=== PATIENT | female | born 1995 | race Caucasian/White ===

== ENCOUNTER 2024-01-30 19:23 | Emergency (ER) | payer MEDICARE, MEDICAID, SELFPAY ==
--- NOTE | ~2024-01-30 | CT_ITS ---
EXAMINATION: CT abdomen pelvis w con DATE: 01/31/2024 02:47 INDICATION: Abdominal pain TECHNIQUE: Computed tomography (CT) of the abdomen and pelvis was performed with 100 mL Omnipaque-350 intravenous contrast. Automated exposure control and iterative reconstruction technique were employe d. The dose-length product was 224.20 mGy-cm. COMPARISON: None FINDINGS: Small region of consolidation with surrounding patchy groundglass opacities in the right middle lobe and additional more subtle patchy groundglass opacities in the left lower lobe, both concerning for p neumonia. Heart size is normal. No pericardial effusion. Cardiac pacemaker leads at the right atrial appendage and near the apex of the right ventricle. 8 mm cyst at the dome of the liver. Gallbladder, spleen, pancreas, bilateral adrenal glands and kidneys are normal. Bowels including the appendix are normal. Bladder, anteverted uterus and right ovary are normal. 2.7 cm left ovarian cyst versus follic le. No free intraperitoneal gas or fluid. No pathologically enlarged abdominal or pelvic lymphadenopa thy. Bones are unremarkable. IMPRESSION: 1. Pneumonia in the right middle and left lower lobes. No acute intra-abdominal/pelvic process. Reviewed, dictated and finalized at location A. ER SETTER CHAINSTITCH IMPRESSION: 1. Pneumonia in the right middle and left lower lobes. No acute intra-abdominal /pelvic process.
[2024-01-30 19:26] VITALS: BP 94/65; PULSE 92; RESP 20; TEMP 36.5; O2SAT 99
[2024-01-30 21:21] VITALS: BP 109/52; PULSE 40; RESP 16; TEMP 37.1
[2024-01-30 23:20] VITALS: BP 124/66; PULSE 73; RESP 18; TEMP 36.6; O2SAT 99
[2024-01-31 00:37] VITALS: BP 96/61; PULSE 89; RESP 14; TEMP 36.5; O2SAT 100
--- NOTE | 2024-01-31 00:50 | PC.NURSE ---
Patient states that she has been bleeding off and on for a month. Patient states she has not seen her OB, but has tried. Patient states she was told at [facility] that she needs a hysterectomy. Notified EDP OSEAS Mejía.
--- NOTE | 2024-01-31 01:28 | ED_ITS ---
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 She reports the symptoms have been going on for approximately 1 month. Patient denies having a PCP or an OBGYN. Patient reports in August she had similar symptoms and her hemoglobin was 5.1. She reports her symptoms have continued to get worse. Patient endorses having 4 children, 2 with special needs. She reports walking makes it worse. Patient denies stating I made him get fixed while pointing at her boyfriend, who is also in the room. She endorses abdominal pain that is intermittent but the vaginal bleeding is constant. Patient denies any urinary symptoms, recent fevers, other signs/symptoms of infection. Related Data Allergies Allergy/AdvReac Type Severity Reaction Status Date / Time diphenhydramine (From Allergy Rash Verified 01/30/24 19:34 Benadryl) naproxen Allergy RASH Verified 01/30/24 19:34 nitrofurantoin (From Allergy Rash Verified 01/30/24 19:34 Macrobid) Review of Systems 2 Review of Systems: All systems reviewed & are unremarkable except as noted in HPI and below Exam 2 Narrative: GENERAL: Pale, poorly-nourished, non-toxic, in no acute distress. HEAD: Normocephalic, atraumatic. NECK: Supple. No adenopathy, no masses. RESPIRATORY: Airway patent, respirations nonlabored. Clear to auscultation bilaterally, no rales, rhonchi, wheezing. CARDIOVASCULAR: Regular rate and rhythm without murmurs, rubs, or gallops. Peripheral pulses 2+ and equal bilaterally. ABDOMINAL: Soft, tender in RLQ, RUQ, LLQ, nondistended, no hepatosplenomegaly. Normoactive BS. MUSCULOSKELETAL: Moves all extremities. Strength/ROM intact without gross deformities. SKIN: Warm, dry, normal color. No rashes. NEURO: A&O X3. Speech clear. Cranial nerves II-XII grossly intact. Steady gait. No ataxic movements. PSYCHIATRIC: inappropriate mood as evidence by periodic laughing at inappropriate times, Normal interaction. Course Vital Signs Vital signs: Vital Signs Temperature 36.5 C 01/30/24 19:26 Pulse Rate 92 01/30/24 19:26 Respiratory Rate 20 01/30/24 19:26 Blood Pressure 94/65 L 01/30/24 19:26 Pulse Oximetry 99 01/30/24 19:26 Oxygen Delivery Room Air 01/30/24 19:26 Temperature 36.6 C 01/31/24 02:52 Pulse Rate 90 01/31/24 02:52 Respiratory Rate 16 01/31/24 02:52 Blood Pressure 145/96 H 01/31/24 02:52 Pulse Oximetry 100 01/31/24 02:52 Oxygen Delivery Room Air 01/30/24 19:26 MDM - Female Genitourinary MDM Narrative Medical decision making narrative: Patient is a 28-year-old homeless female who presents to the ER with complaints of vaginal bleeding and abdominal pain. She reports the symptoms have been going on for approximately 1 month. Patient denies having a PCP or an OBGYN. Patient reports in August she had similar symptoms and her hemoglobin was 5.1. She reports her symptoms have continued to get worse. Patient endorses having 4 children, 2 with special needs. She reports walking makes it worse. Patient denies stating I made him get fixed while pointing at her boyfriend, who is also in the room. She endorses abdominal pain that is intermittent but the vaginal bleeding is constant. Patient denies any urinary symptoms, recent fevers, other signs/symptoms of infection. Labs Ordered: CBC, CMP, UA, urine hCG, beta hCG quantitative Imaging Ordered: CT abdomen pelvis scan (d/t pt's elevated liver enzymes) Results: Patient's CBC indicated RBC of 4.1, hemoglobin of 8.2, hematocrit 30.8%. Her CMP indicates a carbon dioxide level of 36, creatinine of 0.6, AST of 46, ALT of 118. patient's urinalysis indicates 2+ protein, 3+ blood, positive nitrates, 1+ leukocytes, RBCs 11-20, and WBCs of 6-10. Patient's urine hCG was negative. Patient abdominal/ pelvis CT scan indicates............... Diagnosis: urinary tract infection Patient Education/Shared MDM: Results shared with patient. Patient will be discharged home with prescription for Keflex to treat her UTI. She was strongly advised to stay hydrated. Patient should follow-up with OBGYN as soon as possible. She may take ibuprofen counter for pain and discomfort. Patient and her significant other verbalized understanding and are in agreement with plan. 0330- Care signed out to Dr. Mcguire. Differential Diagnosis Differential diagnosis: Likely urinary tract infection, dysmenorrhea and other (abnormal vaginal bleeding) Lab Data Attestation: I reviewed the patient's lab results. 01/31/24 01:51 01/31/24 01:51 Labs: Lab Results 01/31/24 Range/Units 01:51 WBC 6.6 (4.5-10.0) K/mm3 RBC 4.10 L (4.2-5.4) M/mm3 Hgb 8.2 L (12.0-15.0) g/dL Hct 30.8 L (37.0-47.0) % MCV 75.1 L (80-100) fl MCH 20.0 L (26-34) pg MCHC 26.6 L (32-36) g/dl RDW 19.6 H (11.5-14.5) % Plt Count 275 (150-375) k/mm3 MPV 10.8 H (7.4-10.4) fl Immature Gran % (Auto) 0.2 (0-0.5) % Neut % (Auto) 62.4 (45.5-73.1) % Lymph % (Auto) 29.5 (18.3-44.2) % [place] % (Auto) 5.0 (2.6-8.5) % Eos % (Auto) 2.4 (0-4.4) % Baso % (Auto) 0.5 (0.2-1.2) % Lymph # (Auto) 1.94 (0.9-3.2) K/mm3 [place] # (Auto) 0.3 (0.1-0.6) K/mm3 Eos # (Auto) 0.2 (0-0.3) K/mm3 Baso # (Auto) 0.0 (0.0-0.1) K/mm3 Abs Immat Gran (auto) 0.01 (0.00-0.031) K/mm3 Absolute Neuts (auto) 4.1 (1.3-6.7) K/mm3 Absolute Nucleated RBC 0.000 (0.0-0.012) K/mm3 Nucleated RBC % 0.0 (0.0-0.2) % Platelet Estimate Adequate (Adequate) Large Platelets Present Polychromasia 1+ Hypochromasia 1+ Anisocytosis 1+ Macrocytosis 1+ (NORMAL) Ovalocytes 1+ Schistocytes None seen Sodium 142 (137-145) mmol/L Potassium 3.7 (3.4-5.0) mmol/L Chloride 101 (98-107) mmol/L Carbon Dioxide 36 H (22-30) mmol/L Anion Gap 5 (4-12) mmol/L BUN 12 (7-17) mg/dL Creatinine 0.60 L (0.7-1.0) mg/dL Estim Creat Clear Calc 87 ml/min Estimated GFR > 60 (59 - ) Glucose 94 (65-110) mg/dL Calcium 9.2 (8.4-10.2) mg/dL Total Bilirubin 1.0 (0.2-1.3) mg/dL AST 46 H (14-36) U/L ALT 118 H (6-35) U/L Alkaline Phosphatase 98 (38-126) U/L Total Protein 8.0 (6.3-8.2) g/dL Albumin 4.3 (3.5-5.1) g/dL Beta HCG, Quant < 2.39 mIU/ML Urine Color Dark yellow (Yellow) Urine Appearance Cloudy H (Clear) Urine pH 6.0 (5.0-9.0) Ur Specific [place] 1.027 (1.001-1.035) Urine Protein 2+ H (Negative) mg/dL Urine Glucose (UA) Negative (Negative) mg/dL Urine Ketones Negative (Negative) mg/dL Ur Blood (Man) 3+ H (Negative) Urine Nitrate Positive H (Negative) Urine Bilirubin Negative (Negative) Urine Urobilinogen 1.0 (<2.0) mg/dL Leukocyte Esterase Rfl 1+ H (Negative) KELSY/UL Urine RBC 11-20 H (0-2) /hpf Urine WBC 6-10 H (0-3) /hpf Ur Squamous Epith Cells Few (Few) /hpf Urine Bacteria 2+ /hpf Urine Test Negative Discharge Plan Discharge Clinical Impression: Urinary tract infection, Abnormal vaginal bleeding Patient Disposition: Home, Self-Care Condition: Stable Instructions: Antibiotic Form, Abnormal (Dysfunctional) Uterine Bleeding (ED), Urinary Tract Infection in Women (ED) Additional Instructions: Please return to the ER with an worsening symptoms. Follow-up with primary care provider in the next 2-3 days. Take all medications as prescribed. Patient Language: Portuguese Prescriptions: New cephalexin 500 mg capsule 500 mg PO Q8H 7 Days Qty: 21 0RF Follow-up/Referrals: UNKNOWN,DOCTOR [Primary Care Provider] -
[2024-01-31] MEDS: SODIUM CHLORIDE 0.9% IV 1,000 ML 999 ML IV CONT (01:51)
[2024-01-31 01:59] LABS: Basophils Percent Auto 0.5 % (0.2-1.2); Eosinophils Absolute Auto 0.2 K/mm3 (0-0.3); Eosinophils Percent Auto 2.4 % (0-4.4); Hematocrit 30.8 % (37.0-47.0); Hemoglobin 8.2 g/dL (12.0-15.0); Immature Granulocyte Absolute 0.01 K/mm3 (0.00-0.031); Immature Granulocyte Percent A 0.2 % (0-0.5); Lymphocytes Absolute Auto 1.94 K/mm3 (0.9-3.2); Lymphocytes Percent Auto 29.5 % (18.3-44.2); Mean Corpuscular HGB Conc 26.6 g/dl (32-36); Mean Corpuscular Volume 75.1 fl (80-100); Mean Platelet Volume 10.8 fl (7.4-10.4); Monocytes Absolute Auto 0.3 K/mm3 (0.1-0.6); Neutrophils Absolute Auto 4.1 K/mm3 (1.3-6.7); Neutrophils Percent Auto 62.4 % (45.5-73.1); Platelet Count Result 275 k/mm3 (150-375); Red Cell Distribution Width 19.6 % (11.5-14.5); White Blood Count 6.6 K/mm3 (4.5-10.0)
[2024-01-31 02:02] LABS: Pregnancy On Board Control Positive; Urine Pregnancy Test Negative
[2024-01-31 02:04] LABS: Add Urine Microscopic? YES; Appearance Urine Cloudy (Clear); Bilirubin Urine Negative (Negative); Blood Urine 3+ (Negative); Color Urine Dark Yellow (Yellow); Glucose Urine UA Negative (Negative); Ketones Urine Negative (Negative); Leukocyte Esterase Ur 1+ LEU/UL (Negative); Nitrate Urine Positive (Negative); Protein Urine 2+ mg/dL (Negative); Specific Grav Ur 1.027 (1.001-1.035)
[2024-01-31 02:06] LABS: Squamous Epithelial Cell Urine Few /hpf (Few)
[2024-01-31 02:07] LABS: Bacteria Urine 2+ /hpf
[2024-01-31 02:13] LABS: Alanine Aminotransferase 118 U/L (6-35); Albumin Level 4.3 g/dL (3.5-5.1); Alkaline Phosphatase 98 U/L (38-126); Anion Gap 5 mmol/L (4-12); Aspartate Amino Transferase 46 U/L (14-36); Blood Urea Nitrogen 12 mg/dL (7-17); Calcium 9.2 mg/dL (8.4-10.2); Carbon Dioxide 36 mmol/L (22-30); Chloride 101 mmol/L (98-107); Estimated CRCL calculation 87 ml/min; Estimated Glomerular Filt Rate > 60; Glucose 94 mg/dL (65-110); Potassium 3.7 mmol/L (3.4-5.0); Sodium 142 mmol/L (137-145)
[2024-01-31 02:18] LABS: Anisocytosis 1+; Large Platelets Present; Macrocytosis 1+ (NORMAL); Ovalocytes 1+; Platelet Estimate Adequate (Adequate); Schistocytes None Seen
[2024-01-31 02:19] LABS: Hypochromasia 1+; Polychromasia 1+
[2024-01-31 02:26] LABS: Beta HCG Quantitative < 2.39 mIU/ML
[2024-01-31 02:41] VITALS: BP 120/60; PULSE 88; RESP 16; TEMP 36.5; O2SAT 99
[2024-01-31 02:52] VITALS: BP 145/96; PULSE 90; RESP 16; TEMP 36.6; O2SAT 100
[2024-01-31 03:01] VITALS: BP 108/77; PULSE 67; RESP 14; TEMP 36.5; O2SAT 100
[2024-01-31] MEDS: CEPHALEXIN 500 MG CAPSULE PO (03:08)
[2024-01-31 04:28] VITALS: BP 111/65; PULSE 67; RESP 18; TEMP 36.3; O2SAT 99
[2024-01-31 06:13] VITALS: BP 95/53; PULSE 67; RESP 100; TEMP 36.6; O2SAT 100
== END 2024-01-31 06:54 | disposition home or self-care (01) ==
PROVIDERS: Emergency Provider Registered Nurse
DX: N39.0 Urinary tract infection, site not specified (principal); J18.9 Pneumonia, unspecified organism; N93.9 Abnormal uterine and vaginal bleeding, unspecified; Z59.00 Homelessness unspecified
CPT/HCPCS: 36415; 74177; 80053; 81001; 81025; 84702; 85025; 87086; 87186; 96360; 99284; A9270; J7030; Q9967

== ENCOUNTER 2024-11-22 09:17 | Emergency (ER) | payer MEDICAID, SELFPAY ==
--- OUTSIDE RECORDS SUMMARY | 2024-11-02 05:52 | XMS_ITS | Continuity of Care Document ---
Author Organization [facility] Address [address] [place] [phone] Phone Care Team Providers Care Director Of Annual Giving Name Role Phone Kiara GREENE, FACC, Ludy [...] Diagnoses Date Provider Providers Copied on Encounter [facility], [facility] [place], [place], [id number] , tel: [phone] [facility] No Information Kiara Boston. [address] [place] [address], [id number] , . tel: [phone] [facility], [facility] [place], [place], [id number] , tel: [phone] [facility] No Information 5 Hardik Stubbs. [address] [place], [place], [id number] , . tel: [phone] Referring Provider: Evelyne Dye, [address] , [place], [address] . tel:[phone] [facility], [address] [place] [address], [id number] , tel: [phone] [facility] No Information 5 Kiara Boston. [address] [place], [place], [id number] , . tel: [phone] Referring Provider: Ludy Stark, [address] [place], [address] . tel:[phone] [facility], [address] [place] [address], [id number] , tel: [phone] [facility] No Information 5 Kiara Boston. [address] [place], [place], [id number] , . tel: [phone] Referring Provider: Ludy Stark, [address] [place], [address] . tel:[phone] [facility], [address] [place] [address], [id number] , tel: [phone] [facility] No Information 5 Hardik Stubbs. [address] [place], [place], [id number] , . tel: [phone] Referring Provider: Evelyne Dye, [address] [place], [address] . tel:[phone] [facility], [address] [place] [address], [id number] , tel: [phone] [facility] Unspecified atrial fibrillationPresence of cardiac pacemakerBradycardia, unspecifiedOther chest painDizziness and giddinessOther forms of dyspneaNonrheumatic mitral (valve) insufficiency 5 Kiara Boston. [address], [place], [place], [id number] , [place]. tel: [phone] Family History Family Member Type Diagnosis Age At Onset Problem (finding) Family history of Myotonic muscular dystrophy Problem (finding) Family history of Congestive heart failure Payers Payer name Insurance type Covered libertarian ID Authoriza tion(s) [employer] [place] [id number] [employer] [place] [id number] Social History Type Description Quantity Date Captured Comments Sex Female Smoking Status No Information Chief Complaint And Reason For Visit No Information Reason For Referral Reason For Referral No Information History Of Present Illness Encounter Date Complaint History Of Prese nt Illness No Information Functional Status Date Functional Assessmen t No Information Instructions Date Instruction Additional Infor mation No Information Assessments Type Assessment Date No Information Patient Care Teams Name Effective Dates (start - stop) Status Members No Information
[2024-11-22] VITALS (8 sets, daily range): BP systolic 92–101; BP diastolic 60–70; PULSE 60–92; RESP 13–18; TEMP 36.8; O2SAT 97–100
--- NOTE | ~2024-11-22 | XR_ITS ---
Examination: XR chest 2V Clinical History: cp Comparison: None Technique: PA and Lateral Findings: Cardiomediastinal silhouette normal size and configuration. Lungs clear. No acute bony abnormality. IMPRESSION: 1. No acute cardiopulmonary findings. Reviewed, dictated and finalized at location R.
--- NOTE | 2024-11-22 09:34 | ECG_ITS ---
Test Date: 2024-11-22 09:38:25 Measurements Intervals Sil[place] Rate: 69 P: 30 NV: 160 QRS: 64 QRSD: 72 T: 59 QT: 409 QTc: 440 Interpretive Statements ELECTRONIC ATRIAL PACEMAKER MINIMAL Q WAVES- ANTEROLAT/INF LEADS BASELINE WANDER- V1-V2 BORDERLINE ECG No previous ECG available for comparison Electronically Signed On 11-22-2024 10:32:55 CDT by Ricardo Terry D.O.
[2024-11-22 09:55] LABS: Hematocrit 36.6 % (37.0-47.0); Hemoglobin 11.4 g/dL (12.0-15.0); Immature Granulocyte Percent A 0.2 % (0-0.5); Lymphocytes Absolute Auto 1.37 K/mm3 (0.9-3.2); Mean Corpuscular HGB Conc 31.1 g/dl (32-36); Mean Corpuscular Hemoglobin 28.2 pg (26-34); Mean Corpuscular Volume 90.6 fl (80-100); Nucleated Red Blood Cells Absolute Auto 0.000 K/mm3 (0.0-0.012); Nucleated Red Blood Cells Perc 0.0 % (0.0-0.2); Platelet Count Result 204 k/mm3 (150-375); Red Blood Count 4.04 M/mm3 (4.2-5.4); White Blood Count 4.7 K/mm3 (4.5-10.0)
--- NOTE | 2024-11-22 09:57 | ED.CHESTPAIN ---
HPI - Chest Pain General Chief Complaint: Chest Pain Stated Complaint: nausea vomiting, cp Time Seen by Provider: 11/22/24 09:53 History of Present Illness HPI narrative: Patient had some nausea and vomiting yesterday, woke up this morning with chest pain, has not had symptoms like this before. 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 EYES: EOMI, conjunctiva normal ENT: Hearing grossly intact LUNGS: Nonlabored breathing. Clear to auscultation bilaterally HEART: [Regular rate and rhythm] ABD: [Soft], [nontender to palpation] EXT: Normal range of motion SKIN: [No rashes or lesions.] NEURO: [Alert and oriented x 3. Some generalized weakness.] PSYCH: Normal affect Course Vital Signs Vital signs: Vital Signs Temperature 98.2 F 11/22/24 09:31 Pulse Rate 92 11/22/24 09:31 Respiratory Rate 16 11/22/24 09:31 Blood Pressure 101/69 11/22/24 09:31 Pulse Oximetry 99 11/22/24 09:31 Oxygen Delivery Room Air 11/22/24 09:31 Temperature 98.2 F 11/22/24 09:31 Pulse Rate 65 11/22/24 13:22 Respiratory Rate 18 11/22/24 13:22 Blood Pressure 98/62 L 11/22/24 13:22 Pulse Oximetry 97 11/22/24 13:22 Oxygen Delivery Room Air 11/22/24 09:31 MDM - Chest Pain MDM Narrative Medical decision making narrative: Patient had some nausea and vomiting yesterday, woke up this morning with chest pain, has not had symptoms like this before. 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 No prior EKG for comparison. Given this I did order tiny dose of Toradol, and cardiac labs obtained. These are all within acceptable limits including negative troponin, though she does have some minimally elevated LFTs, per EMR they have been elevated in the past also. Chest x-ray without any acute abnormality, I did perform bedside echo that does not show any pericardial effusion or tamponade. On re-evaluation, patient's pain has completely resolved, she is hungry and asking for food. 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 Lab Data 11/22/24 09:47 11/22/24 09:47 Labs: Lab Results 11/22/24 11/22/24 Range/Units 09:47 12:14 WBC 4.7 (4.5-10.0) K/mm3 RBC 4.04 L (4.2-5.4) M/mm3 Hgb 11.4 L D (12.0-15.0) g/dL Hct 36.6 L (37.0-47.0) % MCV 90.6 (80-100) fl MCH 28.2 (26-34) pg MCHC 31.1 L (32-36) g/dl RDW 14.9 H (11.5-14.5) % Plt Count 204 (150-375) k/mm3 MPV 9.7 (7.4-10.4) fl Immature Gran % (Auto) 0.2 (0-0.5) % Neut % (Auto) 61.6 (45.5-73.1) % Lymph % (Auto) 29.1 (18.3-44.2) % Green % (Auto) 4.7 (2.6-8.5) % Eos % (Auto) 4.0 (0-4.4) % Baso % (Auto) 0.4 (0.2-1.2) % Lymph # (Auto) 1.37 (0.9-3.2) K/mm3 Green # (Auto) 0.2 (0.1-0.6) K/mm3 Eos # (Auto) 0.2 (0-0.3) K/mm3 Baso # (Auto) 0.0 (0.0-0.1) K/mm3 Abs Immat Gran (auto) 0.01 (0.00-0.031) K/mm3 Absolute Neuts (auto) 2.9 (1.3-6.7) K/mm3 Absolute Nucleated RBC 0.000 (0.0-0.012) K/mm3 Nucleated RBC % 0.0 (0.0-0.2) % PT 11.9 (11.1-14.7) Seconds INR 0.9 APTT 25.9 (22.3-36.8) Seconds Sodium 139 (137-145) mmol/L Potassium 4.2 (3.4-5.0) mmol/L Chloride 107 (98-107) mmol/L Carbon Dioxide 26 (22-30) mmol/L Anion Gap 6 (4-12) mmol/L BUN 12 (7-17) mg/dL Creatinine 0.46 L (0.7-1.0) mg/dL Estim Creat Clear Calc 112 ml/min Estimated GFR > 60 (59 - ) Glucose 89 (65-110) mg/dL Calcium 9.0 (8.4-10.2) mg/dL Total Bilirubin 0.6 (0.2-1.3) mg/dL AST 74 H (14-36) U/L ALT 79 H (6-35) U/L Alkaline Phosphatase 86 (38-126) U/L Troponin I < 0.012 < 0.012 (0.000-0.034) ng/mL Total Protein 6.6 (6.3-8.2) g/dL Albumin 3.6 (3.5-5.1) g/dL Lipase 87 (23-300) U/L Discharge Plan Discharge Clinical Impression: Chest pain Patient Disposition: Home Condition: Stable Instructions: Chest Pain (ED), Acute Pericarditis (ED) Additional Instructions: Please follow-up with your tangled yarn worker in the next few days. You can take Tylenol for pain as needed. Try the medications as prescribed. You can always return to the emergency room if her pain returns or worsens. Patient Language: Zambian Prescriptions: New acetaminophen [Tylenol Extra Strength] 500 mg tablet 1,000 mg PO Q6H PRN (Reason: pain) Qty: 50 0RF alum-mag hydroxide-simeth [Maalox Advanced] 200-200-20 mg/5 mL suspension 10 ml PO QID PRN (Reason: dyspepsia) Qty: 100 0RF Rx Instructions: administer between meals and at bedtime ondansetron 4 mg tablet,disintegrating 4 mg PO Q8H PRN (Reason: nausea and vomiting) Qty: 10 0RF No Action cephalexin 500 mg capsule 500 mg PO Q8H 7 Days Qty: 21 0RF amoxicillin-pot clavulanate 875-125 mg tablet 1 tablet PO Q12H 7 Days Qty: 14 0RF Follow-up/Referrals: UNKNOWN,DOCTOR [Non-Staff]
[2024-11-22 10:07] LABS: Alanine Aminotransferase 79 U/L (6-35); Albumin Level 3.6 g/dL (3.5-5.1); Alkaline Phosphatase 86 U/L (38-126); Anion Gap 6 mmol/L (4-12); Aspartate Amino Transferase 74 U/L (14-36); Bilirubin,Total 0.6 mg/dL (0.2-1.3); Blood Urea Nitrogen 12 mg/dL (7-17); Calcium 9.0 mg/dL (8.4-10.2); Carbon Dioxide 26 mmol/L (22-30); Chloride 107 mmol/L (98-107); Estimated CRCL calculation 112 ml/min; Estimated Glomerular Filt Rate > 60; Glucose 89 mg/dL (65-110); Lipase 87 U/L (23-300); Potassium 4.2 mmol/L (3.4-5.0); Sodium 139 mmol/L (137-145); Total Protein 6.6 g/dL (6.3-8.2)
[2024-11-22 10:14] LABS: INR 0.9; Prothrombin Time 11.9 Seconds (11.1-14.7)
[2024-11-22 10:15] LABS: Partial Thromboplastin Time 25.9 Seconds (22.3-36.8)
[2024-11-22 10:18] LABS: Troponin I < 0.012 ng/mL (0.000-0.034)
--- OUTSIDE RECORDS SUMMARY | 2024-11-22 10:26 | XMS_ITS | Encounter Summary ---
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 No / Unsure 05/31/2020 12:48 PM CDT documented as of this encounter Functional Status * Is person deaf or have serious hearing difficulty? Answer Date of Assessment Author No 06/01/2020 9:27 AM CDT Jesus Guillen RN * Is person blind or have serious difficulty seeing? Answer Date of Assessment Author No 06/01/2020 9:27 AM CDT Jesus Guillen RN * Does person have serious difficulty walking/climbing stairs? Answer Date of Assessment Author No 06/01/2020 9:27 AM CDT Jesus Guillen RN * Does person have difficulty dressing/bathing? Answer Date of Assessment Author No 06/01/2020 9:27 AM CDT Jesus Guillen RN * Does person have difficulty doing errands alone? Answer Date of Assessment Author No 06/01/2020 9:27 AM CDT Jesus Guillen RN documented as of this encounter Mental Status * Does person have difficulty concentrating/remembering/making decisions? Answer Entry Date Author No 06/01/2020 9:27 AM CDT Jesus Guillen RN documented in this encounter Miscellaneous Notes * Telephone Encounter - Aliya Edwards CPhT - 06/01/2020 4:24 PM CDT This patient would like to have any discharge medications filled and delivered to their room prior to discharge. Please send prescriptions to [facility] - E-scribe or Fax ([phone]) This patient has been added to the Bedside Delivery Patients list. Please access this list for communications regarding the status of the prescriptions. Please call [phone] with any questions. documented in this encounter Plan of Treatment Not on file documented as of this encounter Visit Diagnoses Not on filedocumented in this encounter Care Teams Pourer Bull Ladle Relationship Specialty [place] [address] [place] [phone] PCP - General 03/14/18 01/07/24 Gianni Ogden PA [address] [place] [phone] PCP - General Physician Social Media Marketing Manager 03/25/24 Bushra Prado DO [address] [place] [id number] Engineer System Administrator Cardiovascular Disease 02/02/20 documented as of this encounter
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
--- OUTSIDE RECORDS SUMMARY | 2024-11-22 10:26 | XMS_ITS | Encounter Summary ---
Author Organization [facility] Address [address] [facility] [place] [address] Care Team Providers Care Biscuitware Brusher Name Role Phone Gianni Ogden Primary Care Provider + Bushra Prado DO Unavailable [phone] Gianni Ogden Primary Care Provider + Reason for Visit * Reason Comments Refill Request Encounter Details Date Type Department Care Team (Late st Contact Info) Description 08/31/[address] [facility] [place] [address] [place] [id number] Kadie Hunt MD [address] [address] Refill Request Social History Tobacco Use Types Packs/Day Years Used Date Smoking Tobacco: Former Cigarettes Q uit: 06/12/2013 Smokeless Tobacco: Never Alcohol Use Standard Drinks/Week Comments No 0 (1 standard drink = 0.6 oz pur e alcohol) Comments Yes Sex and Gender Information Value Date Recorded Sex Assigned at Not on file Legal Sex Female 6:36 PM CDT Gender Identity Not on file Sexual Orientation Not on file documented as of this encounter Functional Status * Is person deaf or have serious hearing difficulty? Answer Date of Assessment Author No 11/14/2015 12:27 PM CDT Lauren Arce RN * Is person blind or have serious difficulty seeing? Answer Date of Assessment Author No 11/14/2015 12:27 PM CDLauren Mckeon RN * Does person have serious difficulty walking/climbing stairs? Answer Date of Assessment Author No 11/14/2015 12:27 PM Lauren Cunningham RN * Does person have difficulty dressing/bathing? Answer Date of Assessment Author No 11/14/2015 12:27 PM Lauren Cunningham RN * Does person have difficulty doing errands alone? Answer Date of Assessment Author No 11/14/2015 12:27 PM Lauren Cunningham RN documented as of this encounter Mental Status * Does person have difficulty concentrating/remembering/making decisions? Answer Entry Date Author No 11/14/2015 12:27 PM Lauren Cunningham RN documented in this encounter Plan of Treatment Not on file documented as of this encounter Visit Diagnoses Not on filedocumented in this encounter Care Teams Biscuitware Brusher Relationship Specialty Start [place] [address] [place] [phone] PCP - General 03/14/18 01/07/24 Gianni Ogden PA [address] [place] [phone] PCP - General Physician Faculty Research Physician 03/25/24 Bushra Prado DO [address] [place] [address] [address] [place] [address] Ring Cutter Lathe Operator Cardiovascular Disease 02/02/20 documented as of this encounter
--- OUTSIDE RECORDS SUMMARY | 2024-11-22 10:26 | XMS_ITS | Encounter Summary ---
Author Organization [facility] Health Address [address] [facility] [place] [address] Care Team Providers Care Finishing Room Supervisor Name Role Phone Gianni Ogden Primary Care Provider + Bushra Prado DO Unavailable Gianni Ogden Primary Care Provider + Reason for Visit * Reason Onset Date Comments Care 06/07/2020 Encounter Details Date Type Department Care Team (Late st Contact Info) Description 06/07/[address] [facility] PATIENT CALL BACK [address] [place] [address] Noemi Ch RN Postpartum Care Social History Tobacco Use Types Packs/Day Years [...] of Assessment Author No 06/01/2020 9:27 AM Jesus Garcia RN * Does person have serious difficulty walking/climbing stairs? Answer Date of Assessment Author No 06/01/2020 9:27 AM Jesus Garcia RN * Does person have difficulty dressing/bathing? Answer Date of Assessment Author No 06/01/2020 9:27 AM Jesus Garcia RN * Does person have difficulty doing errands alone? Answer Date of Assessment Author No 06/01/2020 9:27 AM Jesus Garcia RN documented as of this encounter Mental Status * Does person have difficulty concentrating/remembering/making decisions? Answer Entry Date Author No 06/01/2020 9:27 AM Jesus Garcia RN documented in this encounter Plan of Treatment Not on file documented as of this encounter Visit Diagnoses Not on filedocumented in this encounter Care Teams Finishing Room Supervisor Relationship Specialty [place] [address] [place] [phone] PCP - General 03/14/18 01/07/24 Gianni Ogden PA [address] [place] [phone] PCP - General Physician Claims Examiner 03/25/24 Bushra Prado DO [address] [place] [address] [address] [place] [address] Shoe Maker Cardiovascular Disease 02/02/20 documented as of this encounter
[2024-11-22] MEDS: KETOROLAC 15 MG/ML VIAL (*BKC) IV PUSH (10:54)
[2024-11-22] MEDS: ONDANSETRON INJ 4 MG/2 ML VIAL IV PUSH (10:54)
--- NOTE | 2024-11-22 12:06 | ECG_ITS ---
Test Date: 2024-11-22 12:13:23 Measurements Intervals [place] Rate: 60 P: 14 HI: 188 QRS: 60 QRSD: 81 T: 54 QT: 464 QTc: 464 Interpretive Statements ELECTRONIC ATRIAL PACEMAKER MINIMAL Q WAVES- ANTEROLAT/INF LEADS BASELINE WANDER- I, III, AVF, V1-V6 BORDERLINE ECG Compared to ECG 11/22/2024 09:38:25 No significant changes Electronically Signed On 11-22-2024 13:57:13 CDT by Ricardo Terry D.O.
[2024-11-22] MEDS: PANTOPRAZOLE SODIUM IV 40 MG VIAL IV PUSH (12:13)
[2024-11-22 12:45] LABS: Troponin I < 0.012 ng/mL (0.000-0.034)
== END 2024-11-22 13:24 | disposition home or self-care (01) ==
PROVIDERS: Emergency Provider Emergency Medicine
DX: R07.9 Chest pain, unspecified (principal)
CPT/HCPCS: 36415; 71046; 80053; 83690; 84484; 85025; 85610; 85730; 93005; 96374; 96375; 99284; A9270; J1885; J2405; J2470

== ENCOUNTER 2024-11-24 20:47 | Emergency (ER) | payer MEDICAID, SELFPAY ==
--- OUTSIDE RECORDS SUMMARY | 2024-11-02 05:52 | XMS_ITS | Continuity of Care Document ---
Author Organization [facility] Address [address] [place] [id number] Phone Care Team Providers Care Corporate General Manager Name Role Phone Kiara GREENE, FACC, Ludy Unavailable Unavail able Allergies, Adverse Reactions, Alerts Substance Reaction Status Criticality TAPE, OCCLUSIVE ADHESIVE Unknown(moderate) Active No Information NITROFURANTOIN MACROCRYSTALLINE Unknown(moderate) Acti ve No Information nitrofurantoin Unknown(moderate) Active No Infor mation metformin Unknown(moderate) Active No Informa tion Medications Medication Instructions Dosage Effective Dates (start - stop) Status Comments ondansetron 4 mg disintegrating tablet DISSOLVE 1 TABLET ON THE TONGUE EVERY 8 HOURS NEEDED FOR NAUSEA OR VOMITING - Active metronidazole 500 mg tablet TAKE 1 TABLET BY MOUTH TWICE DAILY - Active Procedures Procedure Date ELECTROCARDIOGRAM REPORT ELECTROCARDIOGRAM REPORT ELECTROCARDIOGRAM REPORT ELECTROCARDIOGRAM REPORT Advance Directives Directive Yes / No Effective Date File Name No Information Encounters Encounter Description Practice Location Reason(s) For Visit Diagnoses Date Provider Providers Copied on Encounter [facility], [facility] [place], [place], [id number] , tel: [phone] [facility] No Information Kiara Boston. [address] [place] [address], [id number] , . tel: [phone] [facility], [facility] [place], [place], [id number] , tel: [phone] [facility] No Information 5 Hardik Stubbs. [address] [place], [place], [id number] , . tel: [phone] Referring Provider: Evelyne Dye, [address] , [place], [address] . tel:[phone] [facility], [address] [place] [address], [id number] , tel: [phone] [facility] No Information 5 Kiara Boston. [address] [place], [place], [id number] , . tel: [phone] Referring Provider: Ludy Stark, [address] [place], [address] . tel:[phone] [facility], [address] [place] [address], [id number] , tel: [phone] [facility] No Information 5 Kiara Boston. [address] [place], [place], [id number] , . tel: [phone] Referring Provider: Ludy Stark, [address] [place], [address] . tel:[phone] [facility], [address] [place] [address], [id number] , tel: [phone] [facility] No Information 5 Hardik Stubbs. [address] [place], [place], [id number] , . tel: [phone] Referring Provider: Evelyne Dye, [address] [place], [address] . tel:[phone] [facility], [address] [place] [address], [id number] , tel: [phone] [facility] Unspecified atrial fibrillationPresence of cardiac pacemakerBradycardia, unspecifiedOther chest painDizziness and giddinessOther forms of dyspneaNonrheumatic mitral (valve) insufficiency Kiara Boston. [address] [place], [place], [place], [id number] , [place]. tel: [phone] Family History Family Member Type Diagnosis Age At Onset Problem (finding) Family history of Myotonic muscular dystrophy Problem (finding) Family history of Congestive heart failure Payers Payer name Insurance type Covered democrat ID Authoriza titika(s) [place] [employer] [place] [id number] [employer] [place] [id number] Social History Type Description Quantity Date Captured Comments Sex Female Smoking Status No Information Chief Complaint And Reason For Visit No Information Reason For Referral Reason For Referral No Information Plan Of Treatment Date Type Action Status Appointment Sophie Saldana BOOKED History Of Present Illness Encounter Date Complaint History Of Prese nt Illness No Information Functional Status Date Functional Assessmen t No Information Instructions Date Instruction Additional Infor mation No Information Assessments Type Assessment Date No Information Patient Care Teams Name Effective Dates (start - stop) Status Members No Information
--- NOTE | ~2024-11-24 | XR_ITS ---
Examination: XR chest 1V portable Clinical History: dizziness Comparison: 11/22/2024 Technique: Portable AP Findings: Left pacemaker. Heart size normal. Lungs clear. No acute bony abnormality. IMPRESSION: 1. No acute cardiopulmonary findings given portable technique. Reviewed, dictated and finalized at location R.
--- NOTE | 2024-11-24 20:52 | ECG_ITS ---
Test Date: 2024-11-24 21:00:11 Measurements Intervals [place] Rate: 79 P: 37 VT: 173 QRS: 42 QRSD: 86 T: 34 QT: 381 QTc: 438 Interpretive Statements ELECTRONIC ATRIAL PACEMAKER BASELINE ARTIFACT- I, II, III, AVR, AVF, V1-V6 ATYPICAL ECG Compared to ECG 11/22/2024 12:13:23 No significant changes Electronically Signed On 11-25-2024 06:11:58 CDT by Ricardo Terry D.O.
[2024-11-24 20:54] VITALS: BP 112/71; PULSE 75; RESP 20; TEMP 36.4; O2SAT 99
--- OUTSIDE RECORDS SUMMARY | 2024-11-24 22:23 | XMS_ITS | Encounter Summary ---
Author Organization [facility] Health Address [address] [place] [address] Care Team Providers Care Technical Agronomist Name Role Phone Gianni Ogden Primary Care Provider + Bushra Prado DO Unavailable [phone] Gianni Ogden Primary Care Provider + Reason for Visit * Reason Onset Date Comments Care 06/07/2020 Encounter Details Date Type Department Care Team (Late st Contact Info) Description 06/07/[address] [facility] PATIENT CALL BACK [address] [place] [address] Noemi Ch RN Postpartum Care [...] on filedocumented in this encounter Care Teams Technical Agronomist Relationship Specialty [place] [address] [place] [phone] PCP - General 03/14/18 01/07/24 Gianni Ogden PA [address] [place] [phone] PCP - General Physician Dough Cutting Machine Operator 03/25/24 Bushra Prado DO [address] [place] [address] [address] [place] [address] Manufacturing Business Analyst Cardiovascular Disease 02/02/20 documented as of this encounter
--- OUTSIDE RECORDS SUMMARY | 2024-11-24 22:23 | XMS_ITS | Clinical Summary ---
Author Organization [facility] Address [address] [facility] [place] [address] Care Team Providers Care Studio Receptionist Name Role Phone EveBushra Judy DO Unavailable Gianni Ogden Primary Care Provider + Source Comments [facility],non-owned Affiliates and Associated Physician Practices is amultiple site organization consisting of ambulatory clinics and hospital sitesin [place], [place], [place]. This disclosure is being madepursuant to the Care Everywhere program and may not contain all information available regarding this patient. Last updated 17.[facility] Allergies Active Allergy Reactions Criticality Noted Date [...] migh t be different from the original. [facility]2018 [employer] form completed. Diapers given. 03/29/2020; [...] score: Treatment with Dr Mane Herr at [facility] Previously on Buproprion HCL 75mg; pt discontinued [...] from the original note were not included. SNF PATIENT--PLEASE CALL [phone] IF TRIAGED OR ADMITTED Care Provider: Ijeoma sandrita [place] [facility] [place] consultants involved: Kei; Diagnosis: Unilateral left ventriculomegaly resolved, moderate to severe polyhydramnios care needed at : Planned care after delivery: Wharf Operator: Planned surveillance: Initial SNF appointment 09.04 Planned delivery location: [facility] or [facility] (patient undecided) Planned GA at delivery: Planned mode of delivery: Placenta Instructions: Autopsy indicated: Genetics note: Forensic Accountant Concerns: 09/05/15- Patient with PPD after her [...] medical care, and heating? Very hard 03/30/2024 [facility] [place] of Occupat ional Health - Occupational Stress [...] place to sleep or slept in a fpc (including now)? Yes 07/12/2023 Housing Stability Vital Sign Answer James e Recorded In the last 12 months, was t here a time when you were not able to pay the mortgage or rent on time? Yes 03/30/2024 In the past 12 months, how m any times have you moved where you were living? 4 03/30/2024 At any time in the past [facility], were you homeless or living in a fpc (including now)? Yes 03/30/2024 Comments No Sex and Gender Information Value Date Recorded Sex Assigned at Not on file Legal Sex Female 6:36 PM CDT Gender Identity Not on file Sexual Orientation Not on file Last Filed Vital Signs Vital Sign Reading Time Taken Comments Blood Pressure 102/65 03/30/2024 12:35 PM LUG LOADER Pulse 89 03/30/2024 12:35 PM LUG LOADER Temperature 37 C (98.6 F) 03/30/2024 12:35 PM LUG LOADER Respiratory Rate 18 03/30/2024 12:35 PM LUG LOADER Oxygen Saturation 100% 03/30/2024 12:35 PM LUG LOADER Inhaled Oxygen Concentration - - Weight 46.8 kg (103 lb 3.2 oz) 03/26/2024 12:38 AM LUG LOADER Height 154.9 cm (5' 1) 03/26/2024 12:38 AM LUG LOADER Body Mass Index 19.5 03/26/2024 12:38 AM LUG LOADER Plan of Treatment Health Maintenance Due Date [...] AG PANEL AM Draw 03/30/2024 3:55 AM LUG LOADER PAP LB RFLX HPV ASCU Routine 09/08/2019 3:55 PM CDT Anemia, unspecified type from Last 3 Months or Most Recently Relevant to Health Maintenance Results * HIV-1 HIV-2 ANTIBODY + HIV P24 AG PANEL (03/30/2024 3:55 AM LUG LOADER) HIV1/2 Ab + P24 Ag Non Reactive Non Reactive 03/30/2024 11:42 AM LUG LOADER [facility] Blood BLOOD SPECIMEN / Unknown Lab Venipuncture / Unknown 03/30/2024 3:55 AM LUG LOADER 03/30/2024 4:09 AM LUG LOADER Narrative [facility] - 03/30/2024 11:42 AM LUG LOADER No Laboratory evidence of HIV infection. Junito Koenig MD LAB - CHEMISTRY ORDERABLES Final Result [facility] [address] [place] [address] * PAP LB RFLX HPV ASCU (09/08/2019 3:55 PM CDT) Diagnosis Comment 09/15/2019 2:09 PM CDT [facility] ([facility]) Comment: NEGATIVE FOR INTRAEPITHELIAL LESION OR MALIGNANCY. SPECIMEN REPROCESSED FOR INTERPRETATION USING GLACIAL ACETIC ACID (GAA). Specimen Adequacy Comment 020 2:09 PM CDT [facility] ([facility]) Comment: Satisfactory for evaluation. Endocervical and/or squamous metaplastic cells (endocervical component) are present. Areas of partially obscuring blood are present. Performed by Comment 09/15/2019 2:09 PM CDT [facility] ([facility]) Comment:Rolf Fair totechnologist (ASCP) Comment . 09/15/2019 2:09 PM CDT [facility] ([facility]) Note Comment 09/15/2019 2:09 PM CDT [facility] ([facility]) Comment: The Pap smear is a screening test designed to aid in the detection of premalignant and malignant conditions of the uterine cervix. It is not a diagnostic procedure and should not be used as the sole means of detecting cervical cancer. Both false-positive and false-negative reports do occur. Note Comment 09/15/2019 2:09 PM CDT [facility] ([facility]) Comment: The HPV DNA reflex criteria were not met with this specimen result therefore, no HPV testing was performed. Pathology/Cytolo gy PART OF UTERINE CERVIX / Unknown Collection / Unknown 09/08/2019 3:55 PM CDT 09/08/2019 4:06 PM CDT [facility] ([facility]) - 09/15/2019 2:09 PM CDT Performed at: [address] [id number] Graphic Art Sales Representative: Adore Gayle MD, Phone: [phone] Specimen Comment: Source.............Cervix Specimen Comment: No. of containers..01 ThinPrep Vial us Aliya Garcia MD LAB - PATHOLOGY/CYTOLOGY LAYLA VARNER Final Result [facility] ([facility]) [address] [place] [address] from Last 3 Months or Most Recently [...] 10:06 AM 03/16/2020 1:17 PM Care Teams Studio Receptionist Relationship Specialty Start Date End Date Gianni Ogden PA [address] [place], [place] [phone] PCP - General Physician Veterinary Physiologist 03/25/24 Bushra Prado DO [address] [place] [id number] Evaporator Repairer Cardiovascular Disease 02/02/20
--- OUTSIDE RECORDS SUMMARY | 2024-11-24 22:23 | XMS_ITS | Encounter Summary ---
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 Please send prescriptions to [facility] or Fax ([phone]) This patient has been added to the Bedside Delivery Patients list. Please access this list for communications regarding the status of the prescriptions. Please call [phone] with any questions. documented in this encounter Plan of Treatment Not on file documented as of this encounter Visit Diagnoses Not on filedocumented in this encounter Care Teams Risk Adjustment Specialist Relationship Specialty [place] [address] [place] [phone] PCP - General 03/14/18 01/07/24 Gianni Ogden PA [address] [place] [phone] PCP - General Physician Rf Microwave Engineer 03/25/24 Bushra Prado DO [address] [place] [id number] Portfolio Strategist Cardiovascular Disease 02/02/20 documented as of this encounter
[2024-11-24 22:26] VITALS: BP 97/67; PULSE 77; RESP 17; O2SAT 100
[2024-11-24 22:31] LABS: Hematocrit 35.3 % (37.0-47.0); Hemoglobin 11.1 g/dL (12.0-15.0); Immature Granulocyte Percent A 0.2 % (0-0.5); Lymphocytes Absolute Auto 1.89 K/mm3 (0.9-3.2); Mean Corpuscular HGB Conc 31.4 g/dl (32-36); Mean Corpuscular Hemoglobin 28.6 pg (26-34); Mean Corpuscular Volume 91.0 fl (80-100); Nucleated Red Blood Cells Absolute Auto 0.000 K/mm3 (0.0-0.012); Nucleated Red Blood Cells Perc 0.0 % (0.0-0.2); Platelet Count Result 205 k/mm3 (150-375); Red Blood Count 3.88 M/mm3 (4.2-5.4); White Blood Count 4.9 K/mm3 (4.5-10.0)
[2024-11-24 22:36] LABS: Add Urine Microscopic? YES; Appearance Urine Cloudy (Clear); Glucose Urine UA Negative (Negative); Leukocyte Esterase Ur Trace LEU/UL (Negative); Nitrate Urine Negative (Negative); Non Pathogenic Casts 0-2; Specific Grav Ur 1.025 (1.001-1.035)
[2024-11-24 22:41] LABS: Alanine Aminotransferase 62 U/L (6-35); Albumin Level 3.8 g/dL (3.5-5.1); Alkaline Phosphatase 86 U/L (38-126); Anion Gap 8 mmol/L (4-12); Aspartate Amino Transferase 53 U/L (14-36); Bilirubin,Total 0.5 mg/dL (0.2-1.3); Blood Urea Nitrogen 17 mg/dL (7-17); Calcium 9.0 mg/dL (8.4-10.2); Carbon Dioxide 28 mmol/L (22-30); Chloride 104 mmol/L (98-107); Estimated CRCL calculation 109 ml/min; Estimated Glomerular Filt Rate > 60; Glucose 92 mg/dL (65-110); Magnesium 1.9 mg/dL (1.6-2.3); Potassium 4.2 mmol/L (3.4-5.0); Sodium 140 mmol/L (137-145); Total Protein 6.7 g/dL (6.3-8.2)
--- NOTE | 2024-11-24 22:57 | PC.NURSE ---
[employer] interrogator brought to bedside. No directions with interrogator. This RN called hotline on screen. Livestock Trader to call ED back. SANIA Tolentinoy notified.
--- NOTE | 2024-11-24 23:20 | PC.NURSE ---
This RN assumed care/report from Miranda YEPEZ.
--- NOTE | 2024-11-24 23:43 | ED.GENADULT ---
HPI - General Adult General Chief complaint: Arrhythmia/Palpitations Stated complaint: low heart rate, possible pacemaker disfuntion? Time Seen by Provider: 11/24/24 21:51 History of Present Illness HPI narrative: Patient is a 29-year-old female who presents emergency department with chief complaint of possible low heart rate patient was resident of chest not and reports that they checked her pulse and it was in the 40s the patient reports she did feel lightheaded when this happened reports she has a pacemaker Related Data Allergies Allergy/AdvReac Type Severity Reaction Status Date / Time diphenhydramine (From Allergy Rash Verified 11/24/24 20:54 Benadryl) naproxen Allergy RASH Verified 11/24/24 20:54 nitrofurantoin (From Allergy Rash Verified 11/24/24 20:54 Macrobid) Review of Systems Review of Systems: A 10 system review of systems was completed on the patient and is negative except for what is stated in the HPI. Nursing and ancillary documentation was reviewed. Exam Narrative: GENERAL: Well-appearing, well-nourished, and in no acute distress. HEAD: Normocephalic, atraumatic. EYES: PERRLA and EOMI. ENT: Nares clear, no rhinorrhea or epistaxis. Mucous membranes moist. NECK: Supple. CHEST: Clear to auscultation. No respiratory distress. HEART: Regular rate and rhythm. No murmur heard. Normal peripheral pulses. ABDOMEN: Soft, nontender, nondistended, normal active bowel sounds. EXTREMITIES: Normal range of motion. No edema. SKIN: Warm, dry, no rash. NEURO: No focal deficits. Alert and oriented x3. PSYCH: Normal mood and affect. Course Vital Signs Vital signs: Vital Signs Temperature 36.4 C 11/24/24 20:54 Pulse Rate 75 11/24/24 20:54 Respiratory Rate 20 11/24/24 20:54 Blood Pressure 112/71 11/24/24 20:54 Pulse Oximetry 99 11/24/24 20:54 Oxygen Delivery Room Air 11/24/24 20:54 Temperature 36.4 C 11/24/24 20:54 Pulse Rate 77 11/24/24 22:26 Respiratory Rate 17 11/24/24 22:26 Blood Pressure 97/67 L 11/24/24 22:26 Pulse Oximetry 100 11/24/24 22:26 Oxygen Delivery Room Air 11/24/24 20:54 Medical Decision Making MDM Narrative Medical decision making narrative: Differential diagnosis includes false reading at facility, pacemaker malfunction The pacemaker was interrogated that showed the patient had no episodes of bradycardia or dysrhythmia laboratory studies were within normal limits the patient does have chronically elevated transaminases in her AST and ALT were 53 and 62 respectively urinalysis showed 6-10 white blood cells and trace leukocyte esterase Vital Signs Vital Signs: Vital Signs Temperature 36.4 C 11/24/24 20:54 Pulse Rate 75 11/24/24 20:54 Respiratory Rate 20 11/24/24 20:54 Blood Pressure 112/71 11/24/24 20:54 Pulse Oximetry 99 11/24/24 20:54 Oxygen Delivery Room Air 11/24/24 20:54 Temperature 36.4 C 11/24/24 20:54 Pulse Rate 77 11/24/24 22:26 Respiratory Rate 17 11/24/24 22:26 Blood Pressure 97/67 L 11/24/24 22:26 Pulse Oximetry 100 11/24/24 22:26 Oxygen Delivery Room Air 11/24/24 20:54 Lab Data 11/24/24 22:24 11/24/24 22:24 Labs: Lab Results 11/24/24 Range/Units 22:24 WBC 4.9 (4.5-10.0) K/mm3 RBC 3.88 L (4.2-5.4) M/mm3 Hgb 11.1 L (12.0-15.0) g/dL Hct 35.3 L (37.0-47.0) % MCV 91.0 (80-100) fl MCH 28.6 (26-34) pg MCHC 31.4 L (32-36) g/dl RDW 15.0 H (11.5-14.5) % Plt Count 205 (150-375) k/mm3 MPV 10.2 (7.4-10.4) fl Immature Gran % (Auto) 0.2 (0-0.5) % Neut % (Auto) 52.2 (45.5-73.1) % Lymph % (Auto) 38.3 (18.3-44.2) % [place] % (Auto) 5.7 (2.6-8.5) % Eos % (Auto) 3.2 (0-4.4) % Baso % (Auto) 0.4 (0.2-1.2) % Lymph # (Auto) 1.89 (0.9-3.2) K/mm3 [place] # (Auto) 0.3 (0.1-0.6) K/mm3 Eos # (Auto) 0.2 (0-0.3) K/mm3 Baso # (Auto) 0.0 (0.0-0.1) K/mm3 Abs Immat Gran (auto) 0.01 (0.00-0.031) K/mm3 Absolute Neuts (auto) 2.6 (1.3-6.7) K/mm3 Absolute Nucleated RBC 0.000 (0.0-0.012) K/mm3 Nucleated RBC % 0.0 (0.0-0.2) % Sodium 140 (137-145) mmol/L Potassium 4.2 (3.4-5.0) mmol/L Chloride 104 (98-107) mmol/L Carbon Dioxide 28 (22-30) mmol/L Anion Gap 8 (4-12) mmol/L BUN 17 (7-17) mg/dL Creatinine 0.45 L (0.7-1.0) mg/dL Estim Creat Clear Calc 109 ml/min Estimated GFR > 60 (59 - ) Glucose 92 (65-110) mg/dL Calcium 9.0 (8.4-10.2) mg/dL Magnesium 1.9 (1.6-2.3) mg/dL Total Bilirubin 0.5 (0.2-1.3) mg/dL AST 53 H (14-36) U/L ALT 62 H (6-35) U/L Alkaline Phosphatase 86 (38-126) U/L Total Protein 6.7 (6.3-8.2) g/dL Albumin 3.8 (3.5-5.1) g/dL Urine Color Yellow (Yellow) Urine Appearance Cloudy H (Clear) Urine pH 5.5 (5.0-9.0) Ur Specific [place] 1.025 (1.001-1.035) Urine Protein Negative (Negative) mg/dL Urine Glucose (UA) Negative (Negative) mg/dL Urine Ketones Negative (Negative) mg/dL Ur Blood (Man) Negative (Negative) Urine Nitrate Negative (Negative) Urine Bilirubin Negative (Negative) Urine Urobilinogen 1.0 (<2.0) mg/dL Leukocyte Esterase Rfl Trace H (Negative) KELSY/UL Urine RBC 0-2 (0-2) /hpf Urine WBC 6-10 H (0-3) /hpf Ur Squamous Epith Cells Few (Few) /hpf Urine Bacteria Rare /hpf Urine Casts 0-2 Discharge Plan Discharge Clinical Impression: Palpitations, UTI (urinary tract infection) Patient Disposition: Home Condition: Stable Instructions: Antibiotic Form, Heart Palpitations (ED), Urinary Tract Infection in Women (ED) Additional Instructions: Your pacemaker was interrogated that showed no evidence of pacemaker malfunction your heart rate has not been to slow or too fast upon review of the information from the pacemaker Urinalysis does show evidence of UTI your started on antibiotics Patient Language: Hungarian Prescriptions: New cephalexin 500 mg capsule 500 mg PO Q12H 7 Days Qty: 14 0RF No Action cephalexin 500 mg capsule 500 mg PO Q8H 7 Days Qty: 21 0RF amoxicillin-pot clavulanate 875-125 mg tablet 1 tablet PO Q12H 7 Days Qty: 14 0RF acetaminophen [Tylenol Extra Strength] 500 mg tablet 1,000 mg PO Q6H PRN (Reason: pain) Qty: 50 0RF alum-mag hydroxide-simeth [Maalox Advanced] 200-200-20 mg/5 mL suspension 10 ml PO QID PRN (Reason: dyspepsia) Qty: 100 0RF Rx Instructions: administer between meals and at bedtime ondansetron 4 mg tablet,disintegrating 4 mg PO Q8H PRN (Reason: nausea and vomiting) Qty: 10 0RF Follow-up/Referrals: PHYSICIAN,ELECTRONIC FIELD SERVICE ENGINEER [Primary Care Provider, Internal Medicine] Rony Schwartz MD [Physician, Family Practice] Time of Disposition: 23:49
--- NOTE | 2024-11-24 23:45 | PC.NURSE ---
Pt's pacemaker interrogated by [employer]. States that there were no events, no changes, and everything looks good. States he will fax the information here.
[2024-11-25] MEDS: CEPHALEXIN 500 MG CAPSULE PO (00:26)
--- NOTE | 2024-11-25 00:31 | PC.NURSE ---
This RN called [facility] to give report and get a ride for pt and was told the Nurse will call me back.
[2024-11-25 01:06] VITALS: BP 108/66; PULSE 74; RESP 19; O2SAT 98
== END 2024-11-25 00:16 | disposition home or self-care (01) ==
PROVIDERS: Emergency Provider Emergency Medicine
DX: R00.2 Palpitations (principal); N39.0 Urinary tract infection, site not specified; Z95.0 Presence of cardiac pacemaker
CPT/HCPCS: 36415; 71045; 80053; 81001; 83735; 85025; 87086; 93005; 99283; A9270